=== PATIENT | male | born 1940 | race Caucasian/White ===

== ENCOUNTER → 2022-12-29 | Day surgery (SDC) | payer MEDICARE ==
[~2022-12-29] MED LIST: Ketamine 200 MG/20 ML MDV ONE; Lactated Ringers 1,000 ML IV SCH; Propofol 200 MG/20 ML SDV ONE; fentaNYL 50 MCG/ML SDV ONE
== END ==
LOC: CC.SDS 12:14
PROVIDERS: ATTEND Family Medicine
DX: C18.3 Malignant neoplasm of hepatic flexure (principal); D12.7 Benign neoplasm of rectosigmoid junction; K57.30 Diverticulosis of large intestine without perforation or abscess without bleeding; N40.0 Benign prostatic hyperplasia without lower urinary tract symptoms; Z88.0 Allergy status to penicillin; Z91.048 Other nonmedicinal substance allergy status
CPT/HCPCS: 00811; 93005; J2704; J3010; J3490; J7120